=== PATIENT | female | born 1950 | race Caucasian/White ===

== ENCOUNTER 2021-08-31 06:12 | Day surgery (SDC) | payer MEDICARE, SELFPAY ==
[2021-08-31] VITALS (13 sets, daily range): BP systolic 86–129; BP diastolic 42–61; PULSE 61–554; RESP 12–20; TEMP 36.2–36.3; O2SAT 92–97; BMI 30.2
[2021-08-31] MEDS: LACTATED RINGERS 1000 ML 1,000 ML 100 ML IV (06:30)
[2021-08-31] MEDS: SODIUM CHLORIDE 0.9 % (FLUSH) 10 ML SYRINGE IVF (06:58)
[2021-08-31] MEDS: CEFAZOLIN 2 GM INJ IVP (07:35)
[2021-08-31] MEDS: BUPIVACAINE 0.25% 30 ML 15 ML INJECTION (08:00)
--- NOTE | 2021-08-31 08:08 | SUR.OPER ---
Continuous irrigation of operative knee with NACL during procedure.
--- NOTE | 2021-08-31 08:09 | P.ORPRC_ITS ---
Procedure Note Procedure: SURGEON: Vladimir Pham MD COLLECTIVE BARGAINING SPECIALIST: NGA Floyd PREOPERATIVE DIAGNOSIS: Left knee medial meniscus tear POSTOPERATIVE DIAGNOSIS: Left knee medial meniscus tear NAME OF OPERATION: Left knee arthroscopic partial medial meniscectomy ANESTHESIA: Spinal ESTIMATED BLOOD LOSS: 0 mL COMPLICATIONS: None SPECIMENS: None DRAINS: None PREOPERATIVE ANTIBIOTICS: Ancef 2 gram INDICATIONS: The patient is a 71-year-old female with a history of left knee medial pain. MRI scan is consistent with a medial meniscus tear. Despite appropriate nonoperative management, including activity modification, antiinflammatories, [id number] pain medication, bracing, physical therapy, and injections they continue to have pain and disability. Operative intervention was offered. The risks, benefits and expected outcomes were discussed in detail. These included but were not limited to: Infection, bleeding, injury to blood vessel or nerve, venous thromboembolism. All questions were answered to their satisfaction. PROCEDURE: Spinal anesthesia was administered. The patient was placed supine on the operating room table. The left lower extremity was prepped and draped in the usual sterile fashion. The limb was exsanguinated with the Chevy bandage. The pneumatic tourniquet was inflated to 300 mmHg. A standard anterolateral portal was established. The arthroscope was introduced. The working portal was established anteromedially. Diagnostic arthroscopy was performed with findings as follows: The suprapatellar pouch is normal. Articular surface on the patella is normal. Articular surface on the trochlea is normal. The medial gutter is normal. The medial compartment shows a focal area of grade 2/3 change on the medial femoral condyle, normal articular cartilage on the medial tibial plateau. The medial meniscus has a radial tear at the junction of the midbody and posterior horn from the leading edge, to just off the capsule. The notch shows the ACL to be intact. The lateral compartment shows normal articular cartilage on the lateral femoral condyle and lateral tibial plateau. The lateral meniscus is normal. The lateral gutter is normal. The leading edge of the tear was debrided with basket through both portals. It was then contoured with the shaver to a stable base through both portals. Unstable chondral flaps on the medial femoral condyle were debrided with the shaver through both portals. Arthroscopic instruments were removed, the portal sites were Steri-Stripped closed, the knee was infiltrated with 30 mL of 0.25% Marcaine without epinephrine. A dry dressing was applied, the tourniquet was released. Sponge and needle counts were correct x 2. The patient tolerated the procedure well. There were no apparent complications. They were carefully transferred to the hospital bed and taken to the postanesthesia care unit in satisfactory condition. PLAN: The patient will be discharged to home. They may weightbear as tolerates. Range of motion will be unrestricted. They will follow up in the office next week for a wound check.
--- NOTE | 2021-08-31 08:14 | W.ANESCHARGE ---
Anesthesia Charges Start Date/Time Anesthesia Start Date: 08/31/21 Anesthesia Start Time: 07:23 Stop Date/Time Anesthesia Stop Date: 08/31/21 Anesthesia Stop Time: 08:10 Summary Emergency: No Extremes of Age: Over 68-CPT 50472
--- NOTE | 2021-08-31 08:57 | W.ANESCHARGE ---
Anesthesia Charges Start Date/Time Anesthesia Start Date: 08/31/21 Anesthesia Start Time: 07:23 Stop Date/Time Anesthesia Stop Date: 08/31/21 Anesthesia Stop Time: 08:10 Summary Emergency: No Extremes of Age: Over 68-CPT 08417
[2021-08-31] MEDS: OxyCODONE/APAP 5-325 TABLET PO (10:35)
== END 2021-08-31 10:48 | disposition home or self-care (01) ==
PROVIDERS: PCP Family Medicine; Visit Provider Orthopaedic Surgery
PROC: (CPT 29870; principal; 2021-08-31 07:20)
DX: M23.222 Derangement of posterior horn of medial meniscus due to old tear or injury, left knee (principal)
CPT/HCPCS: 29881; 1400; 99100; A9270; J0690; J1885; J2250; J2400; J2405; J2704; J3010; J3490; J7120

== ENCOUNTER 2021-11-15 09:00 | Outpatient (RCR) | payer MEDICARE, SELFPAY ==
--- NOTE | 2021-09-24 11:14 | PT.OPEX ---
PT [place] Out[facility] Eval PT [facility] Outpatient Eval Start: 09/24/21 07:43 Freq: Status: Active Protocol: Document 09/24/21 09:46 ENM (Rec: 09/24/21 11:00 ENM [id number]) E-Signed By Vane Liu, DPT Physical Therapy Outpatient Evaluation Insurance Information Recert Due Date 12/17/21 Insurance Name Medicare B,[facility] Insurance Information/Comments [facility] medicare advantage Medical Diagnosis s/p medial menisectomy of left knee Treating Diagnosis left knee pain, decreased knee ROM, decreased hip strength, decreased knee strength, impaired gait, impaired balance Referring MD Morel Subjective Subjective Patient states that she initially hurt her knee on vacation with a twisting motion in early April. Pains were present and they did not get better over time and was found to have a meniscus tear. She then underwent a left medial meniscectomy 08/31/21 performed by . She has still been having pains after the surgery. At her follow up was given a tubigrip sleeve which has helped some with pains. She has still been icing consistently. Now she is able to do more but with twisting and pivoting the knee is painful. She hasn't been able to comfortably lay on her side to sleep. Longer periods of sitting can still be bothersome. Walking is feeling better she isn't sure how far she could walk but she hasn't tested it. She thinks uneven ground would be uncomfortable. Has a split level home used to do step to using both rails now able to perform it step through for part of the day but isn't able to maintain it the whole day. Patient states that she hasn't been doing much for her exercises and they haven't been for the arms . PMHs: heart condition, HTN, arthritis, osteoposis, CKD stage III, graves disease Pain Comments at its worse 09/05 aggravating: standing too long , sitting too long, turning or twisting easing: icing Current Work Status Retired Precautions Treatment Precautions/Contraindications unrestricted ROM, WBAT Weight Bearing Status Weight Bear as Tolerated Objective Other/Pertinent Objective ROM L knee 0-4-97 R knee 2-0-124 hip flexion, IR and ER WNL B no pains strength: hip flexors L 4-/5 R 4/5 knee extensors L able to raise against gravity did not apply overpressure due pain R 4/5 hip abductors L 3+/5 R 4-/5 good quad set R fair quad set L, good SLR on R lag when performing on L palpation/joint mobility: patellar mobility normal B + for pain palpating L TFL, ITB and glute med gait/balance: gait patient ambulating with decreased L knee SLS able to hold for 4-5s on the R, able to hold 1-2 s on the L before LOB observation/swelling: superior patella L 42.5 cm R 42 cm mid patella B 38.5 cm inferior patella B 37.5 cm strips still present over 2 incisions, no significant redness or bruising noted Functional Test Performed & Score LEFS 22/ Assessment Assessment/Impression Patient is a 71 year old presenting 3 weeks after medial meniscectomy. She tore her meniscus back in April with little relief of pain since then. After surgery pains and swelling have been steadily improving. Her primary complaint is of pain with stairs, sitting too long, standing too long, being able to lay on her side and walk her normal distances. Stiffness and pains have been getting better since the surgery but are still limiting the patient. Her goal is to be able to walk her normal distances again and be stronger. Upon assessment patient displays decreased knee ROM, decreased quad strength and activation, impaired gait and balance. Minimal swelling still present with just a 0.5 cm difference at superior patella compared to contralateral side. Patient has difficulty with SLS on both sides but worse on the L compared to the R. Noted decreased knee extension and stance time on LLE throughout gait cycle. Impairments consistent with s/p knee surgery. Patient would greatly benefit from skilled PT to address impairments stated above in order to be able to perform all household duties and recreational activities without significant discomfort or difficulty after surgery. Primary Functional Limitations walking, stairs, sitting Plan of Care Rehabilitation Potential Good Physical Therapy Goals In 6-7 visits: 1. Patient will be IND with HEP and self management of symptoms 2. Patient will improve pain free knee ROM to WNL 0-0-120 in order to comfortably sit during car rides 3. Patient will be able to perform >10 SLR without lag to demonstrate improvements in LLE quad strength 4. Patient will be able to walk on vacation with her grand kids with less than 2/10 knee pain to demonstrate improvements in walking tolerance 5. Patient will be able to navigate the stairs with step through pattern consistently > 75% of the time for improved navigation of home environment 6. Patient will improve LEFS from 22 to 31 (MDC 9) to demonstrate improvements in LE functional ability Coordination/Communication With Referral Source Treatment Plan/Direct Interventions Electrical Stimulation,Gait Training,Ice/Cold/ Vasopneumatic,Joint Mobilization,Manual Therapy, Neuromuscular Re-ed,Self-Care/ Home Management,Therapeutic Activities,Therapeutic Exercises Frequency/Duration 1x a week for 5-6 weeks, as needed for 2-3 visits Patient Will Be Discharged From Therapy Completion of LTG(s), Independent w/HEP Evaluation Billing Untimed Code Treatment Minutes 33 Complexity Low Certification Information Initial Certification Date 09/24/21 Ending Certification Date 12/17/21
== END 2021-11-30 14:54 | disposition home or self-care (01) ==
PROVIDERS: PCP Family Medicine; Visit Provider Physician Assistant Surgical
DX: M25.562 Pain in left knee (principal); Z51.89 Encounter for other specified aftercare
CPT/HCPCS: 97110; 97140; 97161